=== PATIENT | male | born 1980 | race Caucasian/White ===

== ENCOUNTER 2024-06-14 09:24 | Emergency (ER) | payer SELFPAY | END 2024-06-14 09:59 | disposition home or self-care (01) | LOC: VM.ED 09:24 | DX: S60.221A Contusion of right hand, initial encounter (principal); Z79.899 Other long term (current) drug therapy; W22.8XXA Striking against or struck by other objects, initial encounter | CPT/HCPCS: 73130-RT; 99283 ==

== ENCOUNTER 2024-11-14 17:38 | Emergency (ER) | payer OTHER ==
[2024-11-14] MEDS: Lidocaine 1% 30 ML SDV INJECT ONE (17:54)
[2024-11-14] MEDS: Diphtheria,Pertussis(Acell),Tetanus Vaccine 0.5 ML Syringe IM ONE (18:35)
[2024-11-14] MEDS: Take Home: Amoxicillin/Clavulanate K 875-125 MG Tab, 2 Tab Pack PO ONE (18:36)
== END 2024-11-14 18:59 | disposition home or self-care (01) ==
LOC: VM.ED 17:38
DX: S91.311A Laceration without foreign body, right foot, initial encounter (principal); Z79.899 Other long term (current) drug therapy; F17.200 Nicotine dependence, unspecified, uncomplicated; W16.111A Fall into natural body of water striking water surface causing drowning and submersion, initial encounter
CPT/HCPCS: 12002; 73620-RT; 90471; 90715; 99283-25; A9270-GY; J2003